=== PATIENT | female | born 1985 | race Caucasian/White ===

== ENCOUNTER → 2016-05-06 | Outpatient (CLI) | payer OTHER ==
[~2016-05-06] MED LIST: BUPR1TAB17 PO; FLINCHW9 PO; LABE20TAB PO; LABE30TA PO; NIFE30TA2 PO
[2016-05-06 12:25] LABS: BASO % 0.2 % (0.0-1.0); EOS % 0.4 % (0.0-3.0); LARGE UNSTAINED CELL # 0.1 K/mm3 (0.0-0.4); LARGE UNSTAINED CELL % 1.1 % (0.0-4.0); LYMPH # 1.1 K/mm3 (1.5-4.5); LYMPH % 9.2 % (24.0-44.0); MEAN CORPUSCULAR HGB CONC 33.8 g/dl (32.0-36.5); MEAN CORPUSCULAR VOLUME 88.6 fl (80.0-96.0); MONO # 0.5 K/mm3 (0.0-0.8); MONO % 4.3 % (0.0-5.0); NEUTROPHILS # 10.2 K/mm3 (1.8-7.7); NEUTROPHILS % 84.8 % (36.0-66.0); PLATELET COUNT, AUTOMATED 294 k/mm3 (150-450); WHITE BLOOD COUNT 12.1 K/mm3 (4.0-10.0)
== END ==
LOC: M LAB 10:42
PROVIDERS: ATTEND Specialist
DX: Z34.82 Encounter for supervision of other normal pregnancy, second trimester (principal)

== ENCOUNTER → 2016-05-20 | Outpatient (CLI) | payer OTHER ==
[2016-05-20 18:17] LABS: MEAN CORPUSCULAR HEMOGLOBIN 29.4 pg (27.0-33.0); MEAN CORPUSCULAR HGB CONC 33.8 g/dl (32.0-36.5); MEAN CORPUSCULAR VOLUME 87.1 fl (80.0-96.0); RED CELL DISTRIBUTION WIDTH 13.5 % (11.5-14.5); WHITE BLOOD COUNT 14.3 K/mm3 (4.0-10.0)
[2016-05-20 18:31] LABS: ALT/SGPT 29 U/L (12-78); AST/SGOT 15 U/L (15-37); BILIRUBIN,TOTAL 0.3 MG/DL (0.2-1.0); CREATININE FOR GFR 0.88 MG/DL (0.55-1.02); GLOMERULAR FILTRATION RATE > 60.0 (>60); URIC ACID 4.9 MG/DL (2.6-6.0)
== END ==
LOC: M SMT 14:29
PROVIDERS: ATTEND Obstetrics & Gynecology
DX: O10.013 Pre-existing essential hypertension complicating pregnancy, third trimester (principal)

== ENCOUNTER → 2016-05-22 | Outpatient (CLI) | payer OTHER ==
[~2016-05-22] MED LIST changes: +GUMMCHW PO
--- NOTE | 2016-05-22 09:20 | REP ---
Obstetric sonography: History: growth study. Findings: Scanning demonstrates a viable single intrauterine gestation in a cephalic lie. heart rate is recorded at 133 beats per minute. An anterior placenta is seen without evidence of previa. Amniotic fluid is subjectively normal. Amniotic fluid index is normal at 8.7. The umbilical cord is seen draping across the shoulders. The S/D ratio in the umbilical cord artery by Doppler is somewhat elevated at 4.57 (2.35-3.35). Diastolic flow is preserved. cranium, diaphragm, left-sided stomach, kidneys and bladder are seen today and felt to be unremarkable. Biometry chart: BPD 7.4 cm 29 weeks 6 days Head circumference 27.3 cm 29 week 6 days Abdominal 24.8 cm 29 weeks 0 days Femur length 6.1 cm 31 weeks 6 days Humeral length 5.5 cm 31 weeks 6 days HC/AC ratio normal 1.1. Cephalic index normal 0.76. Estimated weight 1513 grams, 3 pounds 5 ounces, 3rd percentile for 32 weeks 2 days. Impression: 1. Viable single intrauterine gestation at 30 weeks 0 days by today's composite criteria. Expected gestational age estimate based on prior sonography is 32 weeks 2 days. There has been less than expected interval growth. Estimated weight is in the 3rd percentile for 32 weeks 2 days. [place] by prior sonography July 15, 2016.2. S/D ratio in the umbilical cord artery by Doppler elevated at 4.57 (2.35-3.35). ELMO 8.7 (8.5-24.3). Signed by Randy Regan MD 05/22/2016 08:07 P
== END ==
LOC: M SMT 07:55
PROVIDERS: ATTEND Obstetrics & Gynecology
DX: O10.013 Pre-existing essential hypertension complicating pregnancy, third trimester (principal)

== ENCOUNTER 2016-05-24 14:01 | Inpatient (IN) | payer OTHER ==
[~2016-05-24] VITALS: Ht 162.6 cm; Wt 128.0 kg
[2016-05-24] VITALS (11 sets, daily range): BP systolic 145–175; BP diastolic 96–106
[~2016-05-24 14:01] MED LIST changes: -GUMMCHW PO
[2016-05-24] MEDS ORDERED: GUMMCHW PO (14:16)
[2016-05-24] MEDS ORDERED: LABE30TA PO (14:16)
[2016-05-24 15:38] LABS: MEAN CORPUSCULAR HEMOGLOBIN 29.9 pg (27.0-33.0); MEAN CORPUSCULAR HGB CONC 34.5 g/dl (32.0-36.5); MEAN CORPUSCULAR VOLUME 86.6 fl (80.0-96.0); RED CELL DISTRIBUTION WIDTH 12.8 % (11.5-14.5); WHITE BLOOD COUNT 11.8 K/mm3 (4.0-10.0)
[2016-05-24 15:53] LABS: ALT/SGPT 35 U/L (12-78); AST/SGOT 14 U/L (15-37); BILIRUBIN,TOTAL 0.2 MG/DL (0.2-1.0); CREATININE FOR GFR 0.95 MG/DL (0.55-1.02); GLOMERULAR FILTRATION RATE > 60.0 (>60)
[2016-05-24] MEDS ORDERED: LACTATED RINGER'S 1000 ML IV STA (16:08)
[2016-05-24] MEDS: BETAMETHASONE SOLUSPAN 6MG/ML INJ 5ML (J0702) IM SCH (16:35)
[2016-05-24] MEDS: LABETALOL 200 MG TAB PO SCH (20:34)
[2016-05-24] MEDS: buPROPion 75 MG TAB PO SCH (22:15)
[2016-05-25] VITALS (34 sets, daily range): BP systolic 119–166; BP diastolic 66–94
[2016-05-25] MEDS: buPROPion 75 MG TAB PO SCH ×2 (08:54→20:32)
[2016-05-25] MEDS: NIFEdipine 60 MG XL TAB PO SCH (08:56)
[2016-05-25] MEDS: LABETALOL 200 MG TAB PO SCH ×3 (08:57→20:32)
[2016-05-25] MEDS: BETAMETHASONE SOLUSPAN 6MG/ML INJ 5ML (J0702) IM SCH (16:16)
[2016-05-26] VITALS (17 sets, daily range): BP systolic 102–169; BP diastolic 59–89
[2016-05-26] MEDS: LABETALOL 200 MG TAB PO SCH ×3 (08:52→20:47)
[2016-05-26] MEDS: NIFEdipine 60 MG XL TAB PO SCH (08:53)
[2016-05-26] MEDS: buPROPion 75 MG TAB PO SCH ×2 (08:54→20:47)
[2016-05-27] VITALS (29 sets, daily range): BP systolic 142–198; BP diastolic 70–105
[2016-05-27] MEDS: MAG Sulf (OBGYN) 20GM/500ML 20,000 MG in APPROPRIATE DILUENT 1 EA IV SCH (00:05)
[2016-05-27] MEDS ORDERED: miSOPROStol 50 MCG 1/2 TAB (S0191) As Ordered ONE (00:39)
[2016-05-27] MEDS ORDERED: miSOPROStol 50 MCG 1/2 TAB (S0191) SL ONE ×2 (00:45→06:15)
[2016-05-27] MEDS: NIFEdipine 60 MG XL TAB PO SCH (08:18)
[2016-05-27] MEDS: LABETALOL 200 MG TAB PO SCH ×2 (08:19→14:36)
[2016-05-27] MEDS: buPROPion 75 MG TAB PO SCH (08:19)
[2016-05-27] MEDS ORDERED: miSOPROStol 50 MCG 1/2 TAB (S0191) PV ONE (11:00)
[2016-05-27] MEDS ORDERED: BUTORPHANOL 2 MG/ML INJ (J0595) IV PRN (11:00)
[2016-05-27] MEDS ORDERED: LR 1,000 ML IV SCH ×3 (11:00→21:30)
[2016-05-27] MEDS ORDERED: PROMETHAZINE INJ 25 MG/ML VIAL (J2550) IV PRN (11:00)
[2016-05-27] MEDS ORDERED: miSOPROStol 50 MCG 1/2 TAB (S0191) PO ONE (15:15)
[2016-05-27] MEDS ORDERED: BICITRA 30ML SOLN UDC PO ONE (16:30)
[2016-05-27 16:33] LABS: BASO # 0.1 K/mm3 (0.0-0.2); BASO % 0.6 % (0.0-1.0); EOS # 0.1 K/mm3 (0.0-0.50); EOS % 0.4 % (0.0-3.0); LARGE UNSTAINED CELL # 0.1 K/mm3 (0.0-0.4); LARGE UNSTAINED CELL % 0.6 % (0.0-4.0); LYMPH # 1.2 K/mm3 (1.5-4.5); LYMPH % 6.3 % (24.0-44.0); MEAN CORPUSCULAR HGB CONC 33.1 g/dl (32.0-36.5); MEAN CORPUSCULAR VOLUME 87.5 fl (80.0-96.0); MONO # 0.7 K/mm3 (0.0-0.8); MONO % 3.8 % (0.0-5.0); NEUTROPHILS # 15.2 K/mm3 (1.8-7.7); NEUTROPHILS % 88.4 % (36.0-66.0); PLATELET COUNT, AUTOMATED 278 k/mm3 (150-450); RED CELL DISTRIBUTION WIDTH 13.9 % (11.5-14.5); WHITE BLOOD COUNT 17.2 K/mm3 (4.0-10.0)
[2016-05-27] MEDS ORDERED: MORPHINE PRES-FREE INJ 10 MG/10 ML VIAL (J2274) As Ordered ONE (19:29)
[2016-05-27] MEDS ORDERED: NALBUPHINE HCL 10 MG/ML AMP (J2300) IV PRN (19:45)
[2016-05-27] MEDS ORDERED: ONDANSETRON 4MG/2ML VIAL (J2405) IV PRN ×2 (19:45→21:30)
[2016-05-27] MEDS ORDERED: NALOXONE INJ 0.4 MG/1 ML VIAL (J2310) IV PRN ×2 (19:45)
[2016-05-27] MEDS ORDERED: METOCLOPRAMIDE INJ 10MG/2ML VIAL (J2765) IV PRN ×2 (19:45→21:30)
[2016-05-27] MEDS ORDERED: OXYTOCIN INJ 10 UNITS/ML VIAL (J2590) As Ordered ONE ×2 (19:52)
[2016-05-27] MEDS ORDERED: PHENYLephrine HCL 500 MCG/5 ML (100MCG/ML) SYRINGE (J2370) As Ordered ONE (19:54)
[2016-05-27] MEDS ORDERED: ONDANSETRON 4MG/2ML VIAL (J2405) As Ordered ONE (20:00)
[2016-05-27] MEDS ORDERED: KETOROLAC 60 MG/2 ML VIAL (J1885) As Ordered ONE (20:00)
[2016-05-27] MEDS: LR 1,000 ML IV SCH ×2 (21:08)
[2016-05-27] MEDS ORDERED: RHOGAM 300 MCG (1500 IU) INJ (J2790) IM SCH (21:15)
[2016-05-27] MEDS ORDERED: CALCIUM GLUCONATE 1,000 MG in D5W MINI-BAG PLUS 100 ML IV PRN (21:15)
[2016-05-27] MEDS ORDERED: OXYTOCIN DRIP 30 UNITS in APPROPRIATE DILUENT 1 EA IV ONE (21:15)
[2016-05-27] MEDS ORDERED: MAG Sulf (L&D) 4 GM/100 ML 4 GM in APPROPRIATE DILUENT 1 EA IV ONE (21:15)
[2016-05-27] MEDS ORDERED: MEASLES,MUMPS,RUBELLA VACCINE INJ (MMR-II) (90707) SC SCH (21:15)
[2016-05-27] MEDS ORDERED: MOM 30ML SUSPENSION UDC PO PRN (21:15)
[2016-05-27] MEDS ORDERED: fentaNYL 100 MCG/2 ML INJECTION (J3010) As Ordered ONE (21:16)
[2016-05-27] MEDS ORDERED: PERCOCET PO (21:20)
[2016-05-27] MEDS ORDERED: IBUP800T23 PO (21:21)
[2016-05-27] MEDS ORDERED: fentaNYL 100 MCG/2 ML INJECTION (J3010) IV PRN (21:30)
[2016-05-27] MEDS ORDERED: PERCOCET 5MG/325MG TAB PO PRN (21:30)
--- NOTE | 2016-05-27 21:59 | RO ---
DATE OF PROCEDURE: 05/27/2016 PREOPERATIVE DIAGNOSES: 1. Failed induction. 2. Chronic hypertension with superimposed preeclampsia. 3. Severe intrauterine growth restriction (IUGR). POSTOPERATIVE DIAGNOSES: 1. Failed induction. 2. Chronic hypertension with superimposed preeclampsia. 3. Severe intrauterine growth restriction (IUGR). PROCEDURE: Primary lower transverse section. SURGEON: Angelica Blackmon MD ASSISTANTS: DANIEL Craven R2 ANESTHESIA: Spinal. ESTIMATED BLOOD LOSS: 500 mL. INTRAVENOUS FLUIDS: 1400 mL of lactated Ringer's solution. URINE OUTPUT: 50 mL. PREOPERATIVE ANTIBIOTICS: 2 grams of Ancef. SPECIMENS: Cord blood, placenta. OPERATIVE FINDINGS: Female infant, scores 4 and 9. Weight was 3 pounds 5 ounces or 1498 grams. DESCRIPTION OF PROCEDURE: After informed consent was obtained and written consent was reviewed, the patient was brought to the operating room where spinal anesthesia was then placed. She was then placed in the supine position with a left lateral tilt. A Beyer catheter was placed and set to gravity. She was then prepped and draped in a normal sterile fashion. A time-out in the operating room was then performed, identifying the patient, procedure to be performed, as well as drug allergies. Anesthesia was then tested and deemed to be adequate. A Pfannenstiel skin incision was then made and carried down to the underlying rectus fascia. The fascia was scored and this incision was extended bilaterally. The fascia was then dissected off the underlying rectus muscles both superiorly and inferiorly. The rectus muscles were in the midline. The peritoneum was then entered. The vesicouterine peritoneum was then identified, was tented and excised to create a bladder flap. Bladder blade was then placed to retract back the bladder. Curvilinear incision was made in the lower uterine segment. Amniotomy was then performed productive of clear fluid. head was brought to the level of the incision, followed by delivery of shoulders and corpus. Cord was clamped times two and was cut. The was taken over to the warmer where Dr. Ace, Horizontal Drill Operator, awaited. Cord blood was obtained. The placenta was then drained and delivered grossly intact. The uterus was then exteriorized and cleared of all clots and debris. The uterine incision was then closed in two layers using #0 Vicryl first layer in a running locking fashion, followed by a second layer for imbrication in a running nonlocking fashion. The abdomen was then suctioned. Surgical sites were inspected and noted to be hemostatic. The uterus was returned and the patient's abdomen once again inspected and noted to be hemostatic. The anterior peritoneum was then reapproximated with #3-0 Vicryl, the rectus muscles were reapproximated with #3-0 Vicryl. The fascia was then closed with #0 Vicryl in a running nonlocking fashion. The subcutaneous tissue was then irrigated and suctioned. Roxy's fascia was reapproximated with #3-0 Vicryl. Several subdermal stitches were placed of #3-0 Vicryl and the skin was closed with #4-0 Monocryl in a subcuticular fashion. The incision was then cleaned and dry. Mastisol was applied above and below the incision. Steri-Strips were then applied over the incision. The incision was then dressed. The patient was then taken to recovery in stable condition. Counts were correct.
[2016-05-28] VITALS (22 sets, daily range): BP systolic 121–184; BP diastolic 68–96
[2016-05-28] MEDS: LABETALOL 200 MG TAB PO SCH ×4 (01:15→21:47)
[2016-05-28] MEDS: KETOROLAC 30 MG/ML VIAL (J1885) IV SCH ×4 (02:28→20:34)
[2016-05-28] MEDS: LR 1,000 ML IV SCH ×6 (05:08→21:08)
[2016-05-28 07:21] LABS: MEAN CORPUSCULAR HEMOGLOBIN 29.5 pg (27.0-33.0); MEAN CORPUSCULAR HGB CONC 33.9 g/dl (32.0-36.5); MEAN CORPUSCULAR VOLUME 86.9 fl (80.0-96.0); RED CELL DISTRIBUTION WIDTH 12.7 % (11.5-14.5); WHITE BLOOD COUNT 15.5 K/mm3 (4.0-10.0)
[2016-05-28] MEDS: buPROPion 75 MG TAB PO SCH ×2 (07:55→20:34)
[2016-05-28] MEDS: PRENATAL VITAMIN TAB PO SCH (08:50)
[2016-05-28] MEDS: DOCUSATE SODIUM 100 MG CAP PO SCH ×2 (08:50→20:34)
[2016-05-28] MEDS: NIFEdipine 60 MG XL TAB PO SCH (09:26)
[2016-05-28] MEDS: MAG Sulf (OBGYN) 20GM/500ML 20,000 MG in APPROPRIATE DILUENT 1 EA IV SCH ×2 (10:08→19:45)
[2016-05-28] MEDS ORDERED: MAGNESIUM SULFATE 4% INJ 20GM/500ML (40MG/ML) (J3475) As Ordered ONE (19:36)
[2016-05-29] VITALS (9 sets, daily range): BP systolic 114–167; BP diastolic 73–97
[2016-05-29] MEDS: IBUPROFEN 800 MG TAB PO SCH ×3 (04:13→19:48)
[2016-05-29] MEDS: LABETALOL 200 MG TAB PO SCH ×3 (06:07→21:25)
[2016-05-29] MEDS: PERCOCET 5MG/325MG TAB PO PRN ×5 (06:08→22:16)
[2016-05-29] MEDS: DOCUSATE SODIUM 100 MG CAP PO SCH ×2 (08:29→21:26)
[2016-05-29] MEDS: buPROPion 75 MG TAB PO SCH ×2 (08:29→21:26)
[2016-05-29] MEDS: PRENATAL VITAMIN TAB PO SCH (08:29)
[2016-05-29] MEDS: NIFEdipine 60 MG XL TAB PO SCH (08:30)
[2016-05-30 02:05] VITALS: BP 158/82
[2016-05-30] MEDS: PERCOCET 5MG/325MG TAB PO PRN ×3 (02:05→10:30)
[2016-05-30] MEDS: IBUPROFEN 800 MG TAB PO SCH ×2 (03:51→12:12)
[2016-05-30 06:15] VITALS: BP_SYST 164; BP_SYST 179; BP_DIAS 88; BP_DIAS 89
[2016-05-30] MEDS: LABETALOL 200 MG TAB PO SCH (06:18)
[2016-05-30 07:01] VITALS: BP 148/84
[2016-05-30] MEDS ORDERED: PROC30TA PO (08:38)
[2016-05-30] MEDS ORDERED: OXYC1TAB23 PO (08:38)
[2016-05-30] MEDS ORDERED: BUPR15TA PO (08:38)
[2016-05-30] MEDS: DOCUSATE SODIUM 100 MG CAP PO SCH (09:47)
[2016-05-30] MEDS: PRENATAL VITAMIN TAB PO SCH (09:47)
[2016-05-30 09:49] VITALS: BP 155/90
[2016-05-30] MEDS: NIFEdipine 60 MG XL TAB PO SCH (09:49)
[2016-05-30] MEDS: buPROPion 75 MG TAB PO SCH (09:50)
[2016-05-30 10:00] VITALS: BP 155/90
== END 2016-05-30 12:25 | disposition home or self-care (01) | DRG 540 ==
LOC: M LDO 14:01 → M LDI 16:10 → M OBS 05-26 05:07 → M LDI 05-26 23:25 → M OBS 05-27 22:30
PROVIDERS: ADMIT Obstetrics & Gynecology; ATTEND Obstetrics & Gynecology
PROC: 10D00Z1 Extraction of Products of Conception, Low, Open Approach (ICD-10-PCS; principal; 2016-05-27 19:35)
DX: O11.4 Pre-existing hypertension with pre-eclampsia, complicating childbirth (principal); O61.0 Failed medical induction of labor; Z37.0 Single live birth; Z3A.32 32 weeks gestation of pregnancy

== ENCOUNTER 2016-08-13 07:55 | Emergency (ER) | payer OTHER ==
[~2016-08-13] VITALS: Ht 162.6 cm; Wt 122.0 kg
[~2016-08-13 07:55] MED LIST changes: +BUPR15TA PO; +GUMMCHW PO; +IBUP800T23 PO; +OXYC1TAB23 PO; +PERCOCET PO; +PROC30TA PO
[2016-08-13] MEDS ORDERED: PRIL20CA9 PO (08:14)
[2016-08-13] MEDS ORDERED: NS 500 ML IV ONE (08:45)
[2016-08-13] MEDS ORDERED: ONDANSETRON 4MG/2ML VIAL (J2405) IV ONE ×2 (08:45→11:30)
[2016-08-13] MEDS ORDERED: MORPHINE 4 MG/ML 1ML SYRINGE IV ONE (08:45)
[2016-08-13 09:03] LABS: BASO % 0.3 % (0.0-1.0); EOS # 0.1 K/mm3 (0.0-0.50); EOS % 0.8 % (0.0-3.0); LARGE UNSTAINED CELL # 0.1 K/mm3 (0.0-0.4); LARGE UNSTAINED CELL % 0.7 % (0.0-4.0); LYMPH # 0.7 K/mm3 (1.5-4.5); LYMPH % 9.1 % (24.0-44.0); MEAN CORPUSCULAR HEMOGLOBIN 27.7 pg (27.0-33.0); MEAN CORPUSCULAR HGB CONC 32.3 g/dl (32.0-36.5); MEAN CORPUSCULAR VOLUME 85.8 fl (80.0-96.0); MONO # 0.4 K/mm3 (0.0-0.8); MONO % 5.8 % (0.0-5.0); NEUTROPHILS # 6.1 K/mm3 (1.8-7.7); NEUTROPHILS % 83.4 % (36.0-66.0); PLATELET COUNT, AUTOMATED 310 k/mm3 (150-450); RED CELL DISTRIBUTION WIDTH 13.1 % (11.5-14.5); WHITE BLOOD COUNT 7.3 K/mm3 (4.0-10.0)
[2016-08-13 09:18] LABS: ALBUMIN 3.9 GM/DL (3.2-5.2); ALBUMIN/GLOBULIN RATIO 1.15 (1.00-1.93); BILIRUBIN,DIRECT 1.1 MG/DL (0.0-0.2); BILIRUBIN,TOTAL 1.5 MG/DL (0.2-1.0); CALCIUM LEVEL 9.2 MG/DL (8.5-10.1); CREATININE FOR GFR 1.16 MG/DL (0.55-1.02); GLOMERULAR FILTRATION RATE 58.4 (>60); POTASSIUM SERUM 4.1 MEQ/L (3.5-5.1); TOTAL PROTEIN 7.3 GM/DL (6.4-8.2)
--- NOTE | 2016-08-13 09:53 | REP ---
RIGHT UPPER QUADRANT SONOGRAPHY: HISTORY: Right upper quadrant pain. FINDINGS: Scanning through right upper quadrant of the abdomen demonstrates a somewhat dilated, 12.8 cm long gallbladder containing stones and sludge. Common bile duct is normal measuring 0.6 cm. Gallbladder wall is not felt to be thickened, 2 mm. No focal hepatic lesion is seen. Pancreatic tail is obscured by abdominal gas. No pancreatic abnormality is seen. There is no evidence of ascites or right renal abnormality. The right kidney measures 11.3 x 5.2 x 4.1 cm. IMPRESSION: Dilated gallbladder containing sludge and small calculi. No wall thickening or pericholecystic fluid seen. Normal CBD. Signed by Randy Regan MD 08/13/2016 10:14 A
[2016-08-13] MEDS ORDERED: hydrALAZINE INJ 20 MG/ML VIAL IV ONE (14:15)
[2016-08-13 15:02] VITALS: BP 183/86
[2016-08-13 16:43] VITALS: BP 171/84
--- NOTE | 2016-08-13 16:45 | ECGEPIP ---
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
[2016-08-14] MEDS ORDERED: IBUP800T23 PO (06:34)
[2016-08-14] MEDS ORDERED: BUPR200T PO (06:34)
[2016-08-16] MEDS ORDERED: NORCOTAB PO (15:26)
== END 2016-08-13 16:44 | disposition home or self-care (01) ==
LOC: M ED 09:11
DX: K80.20 Calculus of gallbladder without cholecystitis without obstruction (principal); R10.11 Right upper quadrant pain; R94.5 Abnormal results of liver function studies; I10 Essential (primary) hypertension; F41.9 Anxiety disorder, unspecified; F32.9 Major depressive disorder, single episode, unspecified; Z88.0 Allergy status to penicillin; Z88.1 Allergy status to other antibiotic agents; Z88.8 Allergy status to other drugs, medicaments and biological substances; Z91.040 Latex allergy status; Z79.899 Other long term (current) drug therapy
CPT/HCPCS: 36415; 76705; 80048; 80076; 83605; 83690; 85025; 93005; 93041; 96361; 96374; 96375; 96376; 99285; J2405

== ENCOUNTER → 2016-11-19 | Outpatient (CLI) | payer OTHER ==
[~2016-11-19] MED LIST changes: -BUPR1TAB17 PO; +BUPR1TAB53 PO; +BUPR200T PO; +IBUP1TAB7 PO; -IBUP800T23 PO; +NORCOTAB PO; +PRIL20CA9 PO
--- NOTE | 2016-11-19 14:08 | REP ---
KUB, ONE VIEW: HISTORY: Foreign body. A small amount of air is present in small and large intestine. There are no air fluid levels or dilated loops of intestine. There is no pneumoperitoneum. Surgical clips are present in the right upper quadrant. There is no radiopaque foreign body. IMPRESSION: Nonspecific bowel gas pattern. Signed by Marco Antunez MD 11/19/2016 02:13 P
== END ==
LOC: M RAD 12:56
PROVIDERS: ATTEND Internal Medicine Gastroenterology
DX: T18.3XXA Foreign body in small intestine, initial encounter (principal); W18.30XA Fall on same level, unspecified, initial encounter; Y92.009 Unspecified place in unspecified non-institutional (private) residence as the place of occurrence of the external cause

== ENCOUNTER → 2017-04-12 | Outpatient (CLI) | payer OTHER ==
[2017-04-12 18:20] LABS: BASO % 0.4 % (0.0-1.0); EOS # 0.1 10^3/uL (0.0-0.50); EOS % 1.7 % (0.0-3.0); IMMATURE GRANULOCYTE % 0.1 % (0-0); LYMPH # 1.6 10^3/uL (1.5-4.5); LYMPH % 23.7 % (24.0-44.0); MEAN CORPUSCULAR HEMOGLOBIN 27.1 pg (27.0-33.0); MEAN CORPUSCULAR HGB CONC 32.8 g/dl (32.0-36.5); MEAN CORPUSCULAR VOLUME 82.5 fl (80.0-96.0); MONO # 0.8 10^3/uL (0.0-0.8); MONO % 11.2 % (0.0-5.0); NEUTROPHILS # 4.3 10^3/uL (1.8-7.7); NEUTROPHILS % 62.9 % (36.0-66.0); PLATELET COUNT, AUTOMATED 402 10^3/uL (150-450); WHITE BLOOD COUNT 6.9 10^3/uL (4.0-10.0)
[2017-04-12 18:36] LABS: ALBUMIN 3.9 GM/DL (3.2-5.2); ALBUMIN/GLOBULIN RATIO 1.08 (1.00-1.93); BILIRUBIN,TOTAL 0.4 MG/DL (0.2-1.0); CALCIUM LEVEL 8.7 MG/DL (8.5-10.1); CREATININE FOR GFR 1.2 MG/DL (0.55-1.02); GLOMERULAR FILTRATION RATE 55.8 (>60); POTASSIUM SERUM 3.4 MEQ/L (3.5-5.1); TOTAL PROTEIN 7.5 GM/DL (6.4-8.2)
== END ==
LOC: M WUC 15:13
PROVIDERS: ATTEND Registered Nurse Psychiatric/Mental Health
DX: F41.1 Generalized anxiety disorder (principal)

== ENCOUNTER → 2020-06-30 | Outpatient (CLI) | payer OTHER ==
[~2020-06-30] MED LIST changes: -BUPR200T PO; +BUPR200T2 PO; +HYDR-3715 PO; +LABE300T2 PO; -LABE30TA PO; -NORCOTAB PO
[2020-06-30 16:33] LABS: BASO % 0.4 % (0.0-1.0); EOS # 0.1 10^3/uL (0.0-0.5); EOS % 0.9 % (0.0-3.0); HEMOGLOBIN 10.3 g/dl (12.0-15.5); LYMPH # 0.9 10^3/uL (1.5-5.0); LYMPH % 10.8 % (24.0-44.0); MEAN CORPUSCULAR HEMOGLOBIN 22.6 pg (27.0-33.0); MEAN CORPUSCULAR HGB CONC 28.6 g/dl (32.0-36.5); MEAN CORPUSCULAR VOLUME 78.9 fl (80.0-96.0); MONO # 0.8 10^3/uL (0.0-0.8); MONO % 9.9 % (2.0-8.0); NEUTROPHILS # 6.2 10^3/uL (1.5-8.5); NEUTROPHILS % 77.5 % (36.0-66.0); PLATELET COUNT, AUTOMATED 354 10^3/uL (150-450); RED BLOOD COUNT 4.56 10^6/uL (4.00-5.40)
[2020-06-30 16:47] LABS: HEMOGLOBIN A1c 5.5 %
[2020-06-30 17:03] LABS: ALBUMIN 3.2 GM/DL (3.2-5.2); BILIRUBIN,DIRECT 0.6 MG/DL (0.0-0.2); BILIRUBIN,TOTAL 1.5 MG/DL (0.2-1.0); CALCIUM LEVEL 9.4 MG/DL (8.5-10.1); CHOLESTEROL RISK RATIO 2.541 (<5); CREATININE FOR GFR 1.31 MG/DL (0.55-1.30); GLOMERULAR FILTRATION RATE 49.5 (>60); PHOSPHORUS LEVEL 3.5 MG/DL (2.5-4.9); POTASSIUM SERUM 3.3 MEQ/L (3.5-5.1); THYROID STIMULATING HORMONE 3.27 uIU/ML (0.358-3.740); TOTAL PROTEIN 6.9 GM/DL (6.4-8.2)
== END ==
LOC: M WUC 13:19
PROVIDERS: ATTEND Registered Nurse
DX: F41.1 Generalized anxiety disorder (principal); Z51.81 Encounter for therapeutic drug level monitoring; Z13.9 Encounter for screening, unspecified; E55.9 Vitamin D deficiency, unspecified

== ENCOUNTER → 2020-09-07 | Outpatient (REF) | payer OTHER ==
[2020-09-07 13:44] LABS: CHOLESTEROL RISK RATIO 2.23 (<5)
== END ==
LOC: M SFHCPLAZ 09:54
PROVIDERS: ATTEND Physician Assistant Medical
DX: Z13.220 Encounter for screening for lipoid disorders (principal)

== ENCOUNTER 2020-09-28 10:30 | Outpatient (RCR) | payer OTHER | END 2020-10-02 | LOC: M PT 10:30 | PROVIDERS: ATTEND Physician Assistant Medical | DX: I89.0 Lymphedema, not elsewhere classified (principal); I87.2 Venous insufficiency (chronic) (peripheral) ==

== ENCOUNTER 2020-10-31 10:00 | Outpatient (RCR) | payer OTHER | END 2020-11-01 | LOC: M PT 10:00 | PROVIDERS: ATTEND Physician Assistant Medical | DX: I89.0 Lymphedema, not elsewhere classified (principal); I87.2 Venous insufficiency (chronic) (peripheral) ==

== ENCOUNTER 2020-12-01 13:30 | Outpatient (RCR) | payer OTHER | END 2020-12-02 | LOC: M PT 13:30 | PROVIDERS: ATTEND Physician Assistant Medical | DX: I89.0 Lymphedema, not elsewhere classified (principal); I87.2 Venous insufficiency (chronic) (peripheral) ==

== ENCOUNTER 2020-12-29 15:00 | Outpatient (RCR) | payer OTHER | END 2021-01-02 | LOC: M PT 15:00 | PROVIDERS: ATTEND Physician Assistant Medical | DX: I89.0 Lymphedema, not elsewhere classified (principal); I87.2 Venous insufficiency (chronic) (peripheral) ==

== ENCOUNTER 2021-01-31 10:45 | Outpatient (RCR) | payer OTHER | END 2021-02-01 | LOC: M PT 10:45 | PROVIDERS: ATTEND Physician Assistant Medical | DX: I89.0 Lymphedema, not elsewhere classified (principal); I87.2 Venous insufficiency (chronic) (peripheral) ==

== ENCOUNTER 2021-03-02 10:45 | Outpatient (RCR) | payer OTHER | END 2021-03-04 | LOC: M PT 10:45 | PROVIDERS: ATTEND Physician Assistant Medical | DX: I89.0 Lymphedema, not elsewhere classified (principal); I87.2 Venous insufficiency (chronic) (peripheral) ==

== ENCOUNTER 2021-04-02 12:00 | Outpatient (RCR) | payer OTHER | END 2021-04-03 | LOC: M PT 12:00 | PROVIDERS: ATTEND Physician Assistant Medical | DX: I89.0 Lymphedema, not elsewhere classified (principal) ==

== ENCOUNTER 2021-05-02 10:45 | Outpatient (RCR) | payer OTHER | END 2021-05-04 | LOC: M PT 10:45 | PROVIDERS: ATTEND Physician Assistant Medical | DX: I89.0 Lymphedema, not elsewhere classified (principal); I87.2 Venous insufficiency (chronic) (peripheral) ==

== ENCOUNTER → 2021-05-21 | Outpatient (CLI) | payer OTHER ==
[2021-05-21 11:26] LABS: BASO % 0.4 % (0.0-1.0); EOS # 0.2 10^3/uL (0.0-0.5); EOS % 2.5 % (0.0-3.0); HEMATOCRIT 37.2 % (36.0-47.0); HEMOGLOBIN 10.5 g/dl (12.0-15.5); LYMPH # 0.8 10^3/uL (1.5-5.0); LYMPH % 9.9 % (24.0-44.0); MEAN CORPUSCULAR HEMOGLOBIN 20.8 pg (27.0-33.0); MEAN CORPUSCULAR HGB CONC 28.2 g/dl (32.0-36.5); MEAN CORPUSCULAR VOLUME 73.7 fl (80.0-96.0); MONO # 0.7 10^3/uL (0.0-0.8); MONO % 8.9 % (2.0-8.0); NEUTROPHILS # 6.2 10^3/uL (1.5-8.5); PLATELET COUNT, AUTOMATED 327 10^3/uL (150-450); RED BLOOD COUNT 5.05 10^6/uL (4.00-5.40); WHITE BLOOD COUNT 7.9 10^3/uL (4.0-10.0)
[2021-05-21 11:57] LABS: ALBUMIN 2.3 GM/DL (3.2-5.2); BILIRUBIN,DIRECT 0.7 MG/DL (0.0-0.2); CALCIUM LEVEL 8.7 MG/DL (8.5-10.1); CHOLESTEROL RISK RATIO 2.772 (<5); CREATININE FOR GFR 1.13 MG/DL (0.55-1.30); FREE T3 1.9 PG/ML (2.2-4.0); FREE T4 1.13 NG/DL (0.76-1.46); GLOMERULAR FILTRATION RATE 58.3 (>60); PHOSPHORUS LEVEL 3.7 MG/DL (2.5-4.9); POTASSIUM SERUM 3.6 MEQ/L (3.5-5.1); THYROID STIMULATING HORMONE 3.83 uIU/ML (0.358-3.740); TOTAL 25(OH) VITAMIN D 29.1 NG/ML (30.0-100.0); TOTAL PROTEIN 7.4 GM/DL (6.4-8.2)
[2021-05-21 12:08] LABS: HEMOGLOBIN A1c 5.3 %
== END ==
LOC: M LAB 11:02
PROVIDERS: ATTEND Nurse Practitioner Psychiatric/Mental Health
DX: F41.1 Generalized anxiety disorder (principal)

== ENCOUNTER → 2021-06-04 | Outpatient (RCR) | payer OTHER | LOC: M PT 05-07 12:10 | PROVIDERS: ATTEND Physician Assistant Medical | DX: I89.0 Lymphedema, not elsewhere classified (principal) ==

== ENCOUNTER 2021-06-07 16:54 | Inpatient (IN) | payer OTHER ==
[~2021-06-07] VITALS: Ht 162.6 cm; Wt 112.9 kg
[2021-06-07 17:44] LABS: ABG BASE EXCESS -7.4 (-2.0-2.0); ABG HCO3 17.1 MEQ/L (22.0-26.0); ABG O2 SATURATION 96.4 % (95.0-99.0); ABG PARTIAL PRESSURE CO2 32.3 mmHg (35.0-45.0); ABG PARTIAL PRESSURE O2 90.6 mmHg (75.0-100.0); ABG STANDARD HCO3 18.5 MEQ/L (22.0-26.0); ABG TOTAL CO2 18.1 MEQ/L (22.0-29.0); ABG pH (ARTERIAL) 7.342 UNITS (7.350-7.450)
[2021-06-07 17:49] LABS: HEMOGLOBIN 14.9 g/dl (12.0-15.5); MEAN CORPUSCULAR HEMOGLOBIN 20.8 pg (27.0-33.0); MEAN CORPUSCULAR VOLUME 72.2 fl (80.0-96.0); PLATELET COUNT, AUTOMATED 262 10^3/uL (150-450); WHITE BLOOD COUNT 12.6 10^3/uL (4.0-10.0)
[2021-06-07] MEDS ORDERED: DEXTROSE 50% 50 ML SYRINGE As Ordered ONE (18:07)
[2021-06-07] MEDS ORDERED: DEXTROSE 50% 50 ML SYRINGE IV STA ×4 (18:08→22:52)
[2021-06-07] MEDS ORDERED: D10W/0.45% SODIUM CHLORIDE 1,000 ML IV SCH (18:10)
[2021-06-07 18:13] LABS: HEMATOCRIT 51.7 % (36.0-47.0); RED BLOOD COUNT 7.16 10^6/uL (4.00-5.40)
[2021-06-07 18:14] LABS: MEAN CORPUSCULAR HGB CONC 28.8 g/dl (32.0-36.5)
[2021-06-07 18:26] LABS: HCG, SERUM QUALITATIVE NEGATIVE (NEGATIVE); METAMYELOCYTES 4 % (0-0); MONOCYTES 1 % (0-5); NEUTROPHILS 71 % (28-66); TOXIC VACUOLATION 2+
[2021-06-07 18:28] LABS: ANISOCYTOSIS 2+; HYPOCHROMASIA 2+; MICROCYTOSIS 1+; POLYCHROMASIA 1+
[2021-06-07 18:29] LABS: CRENATED RBC 2+; PLATELET ESTIMATE NORMAL (NORMAL)
[2021-06-07 18:36] LABS: CK-MB VALUE MASS 182.4 NG/ML (<3.6); MB/CK RELATIVE INDEX 15.66 (< OR =4)
[2021-06-07] MEDS ORDERED: CEFEPIME HCL 2 GM in D5W MINI-BAG PLUS 50 ML IV ONE (18:40)
[2021-06-07 18:41] LABS: ACETAMINOPHEN LEVEL < 2.0 UG/ML (10.0-30.0); ALBUMIN 1.6 GM/DL (3.2-5.2); ALT/SGPT 80 U/L (12-78); BILIRUBIN,DIRECT 2.3 MG/DL (0.0-0.2); BILIRUBIN,TOTAL 2.9 MG/DL (0.2-1.0); BLOOD UREA NITROGEN 50 MG/DL (7-18); CALCIUM LEVEL 7.9 MG/DL (8.5-10.1); CARBON DIOXIDE LEVEL 20 MEQ/L (21-32); CHLORIDE LEVEL 106 MEQ/L (98-107); ETHYL ALCOHOL (ETHANOL) < 0.003 % (0.000-0.010); GLOMERULAR FILTRATION RATE 18.2 (>60); GLUCOSE, FASTING 87 MG/DL (70-100); LIPASE < 10 U/L (73-393); POTASSIUM SERUM 4.4 MEQ/L (3.5-5.1); SALICYLATE LEVEL < 1.7 MG/DL (5.0-30.0); SODIUM LEVEL 138 MEQ/L (136-145); TOTAL PROTEIN 5.4 GM/DL (6.4-8.2)
[2021-06-07] MEDS ORDERED: BUSP1TAB PO (20:56)
[2021-06-07] MEDS ORDERED: CLON-412 PO (20:56)
[2021-06-07] MEDS ORDERED: VITMTA PO (20:56)
[2021-06-07] MEDS ORDERED: TRAZ-252 PO (20:56)
[2021-06-07] MEDS ORDERED: VENTAER INH (20:56)
[2021-06-07] MEDS ORDERED: SERT-141 PO (20:56)
[2021-06-07 20:58] LABS: CK-MB VALUE MASS 184.5 NG/ML (<3.6); MB/CK RELATIVE INDEX 12.07 (< OR =4)
[2021-06-07] MEDS: dexameTHASONE 4 MG/ML 1ML VIAL (J1100 PER 1MG) IV SCH (21:00)
[2021-06-07] MEDS ORDERED: HOME MED LIST COMPLETE! XX SCH (21:00)
[2021-06-07] MEDS ORDERED: MORPHINE 2 MG/ML 1ML VIAL (J2270) IV ONE (22:15)
[2021-06-07] MEDS ORDERED: NS 500 ML IV ONE (22:15)
[2021-06-07] MEDS ORDERED: ASPIRIN 325 MG TAB PO ONE (22:15)
[2021-06-07] MEDS ORDERED: MAALOX 30 ML SUSP *UDC PO PRN (22:45)
[2021-06-07] MEDS ORDERED: ACETAMINOPHEN TAB 650MG DOSE (2X325MG) PO PRN (22:45)
[2021-06-07] MEDS ORDERED: MOM 30ML SUSPENSION UDC PO PRN (22:45)
[2021-06-07] MEDS ORDERED: D5W/0.45% SODIUM CHLORIDE 1,000 ML IV SCH (22:45)
[2021-06-07] MEDS ORDERED: VANCOMYCIN HCL 1,000 MG, VIAL MATE ADAPTER 1 EACH in NS 250 ML IV ONE (23:30)
[2021-06-07] MEDS: D10W/0.45% SODIUM CHLORIDE 1,000 ML IV SCH (23:40)
[2021-06-08] VITALS (66 sets, daily range): BP systolic 79–162; BP diastolic 46–87; O2SAT 100
[2021-06-08] MEDS ORDERED: HALOPERIDOL 5MG/ML VIAL (J1630 PER 1) IM STA (00:06)
[2021-06-08] MEDS ORDERED: HEPARIN SOD (PORCINE) 5000UNITS/ML 1ML VIAL/SYRINGE IV ONE (00:40)
[2021-06-08] MEDS ORDERED: HEPARIN DRIP 25,000 UNITS in IV 1 EA IV SCH (00:40)
[2021-06-08] MEDS ORDERED: HEPARIN SOD (PORCINE) 5000UNITS/ML 1ML VIAL/SYRINGE IV PRN (00:45)
[2021-06-08] MEDS ORDERED: DEXTROSE 50% 50 ML SYRINGE IV STA ×3 (00:47→06:17)
[2021-06-08] MEDS ORDERED: FUROSEMIDE 40MG/4ML VIAL (J1940) IV ONE ×2 (01:25→04:50)
[2021-06-08 01:37] LABS: ABG BASE EXCESS -11.6 (-2.0-2.0); ABG HCO3 16.4 MEQ/L (22.0-26.0); ABG O2 SATURATION 99.2 % (95.0-99.0); ABG PARTIAL PRESSURE O2 180.9 mmHg (75.0-100.0); ABG STANDARD HCO3 15.5 MEQ/L (22.0-26.0); ABG TOTAL CO2 17.8 MEQ/L (22.0-29.0)
[2021-06-08] MEDS ORDERED: LORazepam 2 MG/ML VIAL IV STA (01:56)
[2021-06-08] MEDS ORDERED: SODIUM BICARBONATE 8.4% INJ 50 ML SYRINGE IV STA (01:59)
[2021-06-08] MEDS ORDERED: REMDESIVIR 200 MG in NS 250 ML IV ONE (02:00)
[2021-06-08 02:12] LABS: INR 2.17; PROTHROMBIN TIME 24.6 SECONDS (12.7-14.5)
[2021-06-08 02:13] LABS: FIBRINOGEN 661 MG/DL (268-480); PARTIAL THROMBOPLASTIN TIME 42.4 SECONDS (25.9-37.0)
[2021-06-08 02:34] LABS: D-DIMER QUANT > 4000.00 ng/ml (<500)
[2021-06-08] MEDS: D10W/0.45% SODIUM CHLORIDE 1,000 ML IV SCH ×2 (02:47→12:25)
[2021-06-08 02:49] LABS: FERRITIN 277 NG/ML (8-252); LDH LACTATE DEHYDROGENASE 812 U/L (84-246); NT-PRO BNP > 175000 PG/ML (<125)
[2021-06-08] MEDS ORDERED: SODIUM CHLORIDE 0.9% INJ 10 ML SYR IV ONE (04:00)
[2021-06-08 05:01] LABS: HEMATOCRIT 43.8 % (36.0-47.0); MEAN CORPUSCULAR HEMOGLOBIN 20.5 pg (27.0-33.0); MEAN CORPUSCULAR HGB CONC 27.6 g/dl (32.0-36.5); MEAN CORPUSCULAR VOLUME 74.1 fl (80.0-96.0); RED BLOOD COUNT 5.91 10^6/uL (4.00-5.40); WHITE BLOOD COUNT 17.1 10^3/uL (4.0-10.0)
[2021-06-08 05:18] LABS: HEMOGLOBIN 12.1 g/dl (12.0-15.5); PLATELET COUNT, AUTOMATED 111 10^3/uL (150-450)
[2021-06-08 05:26] LABS: ALBUMIN 1.2 GM/DL (3.2-5.2); BILIRUBIN,TOTAL 3.3 MG/DL (0.2-1.0); CALCIUM LEVEL 7.2 MG/DL (8.5-10.1); CREATININE FOR GFR 3.42 MG/DL (0.55-1.30); GLOMERULAR FILTRATION RATE 16.3 (>60); POTASSIUM SERUM 5.9 MEQ/L (3.5-5.1); TOTAL PROTEIN 5.1 GM/DL (6.4-8.2)
[2021-06-08 05:43] LABS: ANISOCYTOSIS 2+; ATYPICAL LYMPH 2 % (0-5); CRENATED RBC 2+; LYMPHOCYTES 1 % (16-44); METAMYELOCYTES 2 % (0-0); MONOCYTES 13 % (0-5); NEUTROPHILS 67 % (28-66); PLATELET ESTIMATE DECREASED (NORMAL); POIKILOCYTOSIS 2+; POLYCHROMASIA 1+
[2021-06-08 05:44] LABS: TOXIC GRANULATION 1+; TOXIC VACUOLATION 2+
[2021-06-08] MEDS ORDERED: CALCIUM GLUCONATE 1,000 MG in D5W MINI-BAG PLUS 100 ML IV ONE (06:30)
[2021-06-08] MEDS: PANTOPRAZOLE 40MG VIAL (C9113 PER 1) IV SCH (08:32)
[2021-06-08 08:56] LABS: CREATININE FOR GFR 3.44 MG/DL (0.55-1.30); GLOMERULAR FILTRATION RATE 16.1 (>60); POTASSIUM SERUM 4.2 MEQ/L (3.5-5.1)
[2021-06-08 08:57] LABS: CK-MB VALUE MASS 65.2 NG/ML (<3.6); MB/CK RELATIVE INDEX 15.45 (< OR =4)
[2021-06-08 09:05] LABS: ABG BASE EXCESS -9.9 (-2.0-2.0); ABG HCO3 18.5 MEQ/L (22.0-26.0); ABG O2 SATURATION 83.4 % (95.0-99.0); ABG PARTIAL PRESSURE CO2 51.9 mmHg (35.0-45.0); ABG PARTIAL PRESSURE O2 57.7 mmHg (75.0-100.0); ABG STANDARD HCO3 16.3 MEQ/L (22.0-26.0); ABG TOTAL CO2 20.1 MEQ/L (22.0-29.0)
[2021-06-08 09:14] LABS: ABG pH (ARTERIAL) 7.171 UNITS (7.350-7.450)
[2021-06-08] MEDS ORDERED: SUCCINYLCHOLINE INJ 200 MG/10 ML VIAL (J0330) As Ordered ONE (09:16)
[2021-06-08] MEDS ORDERED: fentaNYL 100 MCG/2 ML INJECTION As Ordered ONE (09:17)
[2021-06-08] MEDS ORDERED: MIDAZOLAM INJ 2MG/2ML VIAL (J2250 PER 1MG) As Ordered ONE ×2 (09:17→09:18)
[2021-06-08 09:19] LABS: VANCOMYCIN RANDOM < 0.8 UG/ML
[2021-06-08] MEDS ORDERED: VANCOMYCIN HCL 750 MG, VIAL MATE ADAPTER 1 EACH in NS 250 ML IV ONE ×2 (10:00→11:00)
[2021-06-08] MEDS: CEFEPIME HCL 1 GM in D5W MINI-BAG PLUS 50 ML IV SCH ×2 (10:03→21:08)
[2021-06-08] MEDS ORDERED: GLUCOSE 4GM CHEW TABLET PO PRN (10:20)
[2021-06-08] MEDS ORDERED: GLUCAGON INJ 1MG VIAL SC PRN (10:20)
[2021-06-08 10:49] LABS: ABG BASE EXCESS -8.6 (-2.0-2.0); ABG HCO3 17.3 MEQ/L (22.0-26.0); ABG O2 SATURATION 99.1 % (95.0-99.0); ABG PARTIAL PRESSURE CO2 37.1 mmHg (35.0-45.0); ABG PARTIAL PRESSURE O2 147.7 mmHg (75.0-100.0); ABG STANDARD HCO3 17.6 MEQ/L (22.0-26.0); ABG TOTAL CO2 18.5 MEQ/L (22.0-29.0); ABG pH (ARTERIAL) 7.287 UNITS (7.350-7.450)
[2021-06-08] MEDS: CHLORHEXIDINE GLUCONATE 0.12 % 15ML UDC (PERIDEX ORAL RINSE) MT SCH ×2 (11:00→21:09)
[2021-06-08] MEDS ORDERED: LevoFLOXacin IV 750 MG in IV 1 EA IV SCH (11:00)
[2021-06-08] MEDS ORDERED: SODIUM CHLORIDE 0.9% INJ 10 ML SYR IV PRN ×2 (11:05→16:55)
[2021-06-08 11:20] LABS: ALBUMIN 1.9 GM/DL (3.2-5.2); BILIRUBIN,TOTAL 3.2 MG/DL (0.2-1.0); CALCIUM LEVEL 7.2 MG/DL (8.5-10.1); CK-MB VALUE MASS 49.8 NG/ML (<3.6); CREATININE FOR GFR 3.43 MG/DL (0.55-1.30); GLOMERULAR FILTRATION RATE 16.2 (>60); MB/CK RELATIVE INDEX 12.39 (< OR =4); POTASSIUM SERUM 4.3 MEQ/L (3.5-5.1); TOTAL PROTEIN 4.9 GM/DL (6.4-8.2)
[2021-06-08] MEDS ORDERED: ONDANSETRON 4MG/2ML VIAL IV PRN (11:40)
[2021-06-08 12:14] LABS: ABG BASE EXCESS -7.5 (-2.0-2.0); ABG HCO3 20.1 MEQ/L (22.0-26.0); ABG O2 SATURATION 76.8 % (95.0-99.0); ABG PARTIAL PRESSURE CO2 49.5 mmHg (35.0-45.0); ABG TOTAL CO2 21.6 MEQ/L (22.0-29.0)
[2021-06-08 12:19] LABS: ABG pH (ARTERIAL) 7.226 UNITS (7.350-7.450)
[2021-06-08 12:20] LABS: ABG PARTIAL PRESSURE O2 47.2 mmHg (75.0-100.0)
[2021-06-08] MEDS ORDERED: ADENOSINE 6MG/2ML INJECTION (J0153) As Ordered ONE (12:39)
[2021-06-08] MEDS ORDERED: LIDOCAINE 1% MDV 20ML VIAL As Ordered ONE (14:14)
[2021-06-08 14:58] LABS: CK-MB VALUE MASS 35.7 NG/ML (<3.6); MB/CK RELATIVE INDEX 11.37 (< OR =4)
[2021-06-08] MEDS: NYSTATIN 100,000 UNITS/GM TOPICAL PWD 15 GM TOP SCH ×2 (15:43→21:41)
[2021-06-08] MEDS ORDERED: ADENOSINE 6MG/2ML INJECTION (J0153) IV STA (15:46)
[2021-06-08] MEDS ORDERED: SODIUM CHLORIDE 0.9% 1000ML IV ONE (15:50)
[2021-06-08 16:33] LABS: APPEARANCE, BODY FLUID CLOUDY (CLEAR); ASCITES FL COLOR YELLOW (COLORLESS); SOURCE, BODY FLUID ASCITES
[2021-06-08 16:54] LABS: SOURCE, BODY FLUID GLUCOSE ASCITES; SOURCE, BODY FLUID TOT PROTEIN ASCITES; TOTAL PROTEIN, BODY FLUID 4.1 G/DL (NOT ESTABLISHED)
[2021-06-08 16:59] LABS: ABG BASE EXCESS -7.5 (-2.0-2.0); ABG HCO3 17.4 MEQ/L (22.0-26.0); ABG O2 SATURATION 98.6 % (95.0-99.0); ABG PARTIAL PRESSURE CO2 32.8 mmHg (35.0-45.0); ABG PARTIAL PRESSURE O2 127.7 mmHg (75.0-100.0); ABG STANDARD HCO3 18.4 MEQ/L (22.0-26.0); ABG TOTAL CO2 18.4 MEQ/L (22.0-29.0); ABG pH (ARTERIAL) 7.342 UNITS (7.350-7.450)
[2021-06-08 17:07] LABS: SPEC. GRAVITY BODY FLUIDS 1.026 (NOT ESTABLISHED)
[2021-06-08] MEDS: DEXTROSE 50% 50 ML SYRINGE IV PRN ×3 (17:38→21:30)
[2021-06-08] MEDS: SODIUM CHLORIDE 0.9% INJ 10 ML SYR IV SCH (18:00)
[2021-06-08] MEDS ORDERED: VANCOMYCIN HCL 750 MG, VIAL MATE ADAPTER 1 EACH in NS 250 ML IV SCH (18:00)
[2021-06-08] MEDS ORDERED: D10W 1,000 ML IV SCH (18:50)
[2021-06-08] MEDS: dexameTHASONE 4 MG/ML 1ML VIAL (J1100 PER 1MG) IV SCH (21:09)
[2021-06-08] MEDS: dexmedeTOMidine 200 MCG in IV 1 EA IV SCH (21:41)
[2021-06-08 21:53] LABS: MAGNESIUM LEVEL 1.5 MG/DL (1.7-2.2)
[2021-06-08 21:56] LABS: HEMATOCRIT 33.2 % (36.0-47.0); MEAN CORPUSCULAR HEMOGLOBIN 20.8 pg (27.0-33.0); MEAN CORPUSCULAR HGB CONC 28.3 g/dl (32.0-36.5); MEAN CORPUSCULAR VOLUME 73.6 fl (80.0-96.0); RED BLOOD COUNT 4.51 10^6/uL (4.00-5.40); WHITE BLOOD COUNT 22.1 10^3/uL (4.0-10.0)
[2021-06-08 21:57] LABS: PLATELET COUNT, AUTOMATED 39 10^3/uL (150-450)
[2021-06-08 22:11] LABS: HEMOGLOBIN 9.4 g/dl (12.0-15.5)
[2021-06-08 22:15] LABS: CALCIUM LEVEL 6.8 MG/DL (8.5-10.1); CREATININE FOR GFR 3.06 MG/DL (0.55-1.30); GLOMERULAR FILTRATION RATE 18.5 (>60); PHOSPHORUS LEVEL 3.6 MG/DL (2.5-4.9); POTASSIUM SERUM 4.3 MEQ/L (3.5-5.1)
[2021-06-08] MEDS: MAG SULF 1GM/100ML (MAG RUN) 1 GM in IV 1 EA IV SCH (23:52)
[2021-06-08] MEDS: CALCIUM GLUCONATE 1,000 MG, VIAL MATE ADAPTER 1 EACH in NS 100 ML IV SCH (23:53)
[2021-06-09] VITALS (94 sets, daily range): BP systolic 69–135; BP diastolic 43–90
[2021-06-09] MEDS: NOREPINEPHRINE BITARTRATE 8 MG in D5W 492 ML IV SCH ×4 (00:51→17:10)
[2021-06-09] MEDS: CALCIUM GLUCONATE 1,000 MG, VIAL MATE ADAPTER 1 EACH in NS 100 ML IV SCH ×3 (01:06→06:15)
[2021-06-09] MEDS ORDERED: D10W 1,000 ML IV SCH (01:30)
[2021-06-09] MEDS: MAG SULF 1GM/100ML (MAG RUN) 1 GM in IV 1 EA IV SCH (02:36)
[2021-06-09 03:13] LABS: HEMATOCRIT 33.6 % (36.0-47.0); HEMOGLOBIN 9.4 g/dl (12.0-15.5); MEAN CORPUSCULAR HEMOGLOBIN 20.5 pg (27.0-33.0); MEAN CORPUSCULAR VOLUME 73.4 fl (80.0-96.0); RED BLOOD COUNT 4.58 10^6/uL (4.00-5.40); WHITE BLOOD COUNT 29.2 10^3/uL (4.0-10.0)
[2021-06-09 03:22] LABS: INR 1.73; PLATELET COUNT, AUTOMATED 33 10^3/uL (150-450); PROTHROMBIN TIME 20.7 SECONDS (12.7-14.5)
[2021-06-09 03:24] LABS: PARTIAL THROMBOPLASTIN TIME 46.4 SECONDS (25.9-37.0)
[2021-06-09 03:47] LABS: CALCIUM LEVEL 6.9 MG/DL (8.5-10.1); CREATININE FOR GFR 2.86 MG/DL (0.55-1.30); PHOSPHORUS LEVEL 3.4 MG/DL (2.5-4.9); POTASSIUM SERUM 4.3 MEQ/L (3.5-5.1)
[2021-06-09] MEDS: REMDESIVIR 100 MG in NS 250 ML IV SCH (04:03)
[2021-06-09] MEDS: dexmedeTOMidine 200 MCG in IV 1 EA IV SCH ×6 (05:27→20:26)
[2021-06-09] MEDS: SODIUM CHLORIDE 0.9% INJ 10 ML SYR IV SCH ×3 (05:27→17:59)
[2021-06-09 06:22] LABS: ABG BASE EXCESS -6.6 (-2.0-2.0); ABG HCO3 17.8 MEQ/L (22.0-26.0); ABG O2 SATURATION 93.7 % (95.0-99.0); ABG PARTIAL PRESSURE CO2 31.9 mmHg (35.0-45.0); ABG PARTIAL PRESSURE O2 70.4 mmHg (75.0-100.0); ABG TOTAL CO2 18.8 MEQ/L (22.0-29.0); ABG pH (ARTERIAL) 7.365 UNITS (7.350-7.450)
[2021-06-09 06:25] LABS: SOURCE, BODY FLUID ALBUMIN ASCITES
[2021-06-09] MEDS: CHLORHEXIDINE GLUCONATE 0.12 % 15ML UDC (PERIDEX ORAL RINSE) MT SCH ×2 (08:38→21:28)
[2021-06-09] MEDS: CEFEPIME HCL 1 GM in D5W MINI-BAG PLUS 50 ML IV SCH ×2 (08:38→21:26)
[2021-06-09] MEDS: NYSTATIN 100,000 UNITS/GM TOPICAL PWD 15 GM TOP SCH ×2 (08:39→21:28)
[2021-06-09] MEDS: PANTOPRAZOLE 40MG VIAL (C9113 PER 1) IV SCH (08:39)
[2021-06-09] MEDS ORDERED: HYDROMORPHONE HCL 0.5 MG/ 0.5 ML SYRINGE (J1170 PER 1) IV PRN (09:20)
[2021-06-09] MEDS: HYDROmorphone HCL 2MG/ML 1ML VIAL IV PRN ×2 (09:25→15:47)
[2021-06-09 09:34] LABS: HEMATOCRIT 34.8 % (36.0-47.0); HEMOGLOBIN 9.9 g/dl (12.0-15.5); MEAN CORPUSCULAR HEMOGLOBIN 20.8 pg (27.0-33.0); MEAN CORPUSCULAR HGB CONC 28.4 g/dl (32.0-36.5); MEAN CORPUSCULAR VOLUME 73.1 fl (80.0-96.0); RED BLOOD COUNT 4.76 10^6/uL (4.00-5.40)
[2021-06-09 09:37] LABS: PLATELET COUNT, AUTOMATED 32 10^3/uL (150-450)
[2021-06-09 09:38] LABS: WHITE BLOOD COUNT 32.8 10^3/uL (4.0-10.0)
[2021-06-09 09:44] LABS: INR 1.67; PROTHROMBIN TIME 20.1 SECONDS (12.7-14.5)
[2021-06-09] MEDS ORDERED: HYDROmorphone HCL 2MG/ML 1ML VIAL As Ordered ONE (09:44)
[2021-06-09 09:45] LABS: PARTIAL THROMBOPLASTIN TIME 50.2 SECONDS (25.9-37.0)
[2021-06-09 10:00] LABS: CALCIUM LEVEL 7.5 MG/DL (8.5-10.1); CREATININE FOR GFR 2.54 MG/DL (0.55-1.30); GLOMERULAR FILTRATION RATE 22.9 (>60); POTASSIUM SERUM 4.3 MEQ/L (3.5-5.1); VANCOMYCIN LEVEL TROUGH 10.3 UG/ML (10.0-20.0)
[2021-06-09] MEDS ORDERED: VANCOMYCIN HCL 750 MG, VIAL MATE ADAPTER 1 EACH in NS 250 ML IV SCH (10:00)
[2021-06-09] MEDS ORDERED: fentaNYL 100 MCG/2 ML INJECTION As Ordered ONE (10:42)
[2021-06-09] MEDS: fentaNYL 100 MCG/2 ML INJECTION IV PRN ×3 (11:00→18:53)
[2021-06-09] MEDS ORDERED: D10W IV SCH (12:00)
[2021-06-09] MEDS ORDERED: [UNRECOGNIZED DRUG - OTHER] IV SCH (12:00)
[2021-06-09] MEDS: D10W IV SCH ×2 (12:11→17:09)
[2021-06-09] MEDS: [UNRECOGNIZED DRUG - OTHER] IV SCH ×2 (12:11→17:09)
[2021-06-09] MEDS: FENTANYL CITRATE IV SCH (12:13)
[2021-06-09] MEDS: NS IV SCH (12:13)
[2021-06-09] MEDS: CALCIUM GLUCONATE 1,000 MG in NS 100 ML IV SCH ×4 (12:35→19:59)
[2021-06-09] MEDS: DEXTROSE 50% 50 ML SYRINGE IV PRN (13:19)
[2021-06-09] MEDS: metroNIDAZOLE 500 MG in IV 1 EA IV SCH ×2 (13:19→22:12)
[2021-06-09 17:11] LABS: HEMATOCRIT 35.5 % (36.0-47.0); HEMOGLOBIN 10.1 g/dl (12.0-15.5); MEAN CORPUSCULAR HEMOGLOBIN 20.8 pg (27.0-33.0); MEAN CORPUSCULAR HGB CONC 28.5 g/dl (32.0-36.5); MEAN CORPUSCULAR VOLUME 73.2 fl (80.0-96.0); RED BLOOD COUNT 4.85 10^6/uL (4.00-5.40)
[2021-06-09 17:13] LABS: PLATELET COUNT, AUTOMATED 24 10^3/uL (150-450); WHITE BLOOD COUNT 38.5 10^3/uL (4.0-10.0)
[2021-06-09 17:16] LABS: MAGNESIUM LEVEL 1.6 MG/DL (1.7-2.2)
[2021-06-09 17:16] LABS: MAGNESIUM LEVEL 2.1 MG/DL (1.7-2.2)
[2021-06-09] MEDS ORDERED: LORazepam 2 MG/ML VIAL IV STA (17:18)
[2021-06-09 17:30] LABS: CALCIUM LEVEL 7.4 MG/DL (8.5-10.1); CREATININE FOR GFR 2.13 MG/DL (0.55-1.30); GLOMERULAR FILTRATION RATE 28.1 (>60); PHOSPHORUS LEVEL 2.8 MG/DL (2.5-4.9); POTASSIUM SERUM 4.1 MEQ/L (3.5-5.1)
[2021-06-09 19:43] LABS: MAGNESIUM LEVEL 1.9 MG/DL (1.7-2.2)
[2021-06-09] MEDS ORDERED: VANCOMYCIN HCL 500 MG in D5W MINI-BAG PLUS 100 ML IV SCH (20:00)
[2021-06-09] MEDS ORDERED: fentaNYL 100 MCG/2 ML INJECTION IV ONE (21:20)
[2021-06-09] MEDS: dexameTHASONE 4 MG/ML 1ML VIAL (J1100 PER 1MG) IV SCH (21:25)
[2021-06-10] VITALS (95 sets, daily range): BP systolic 75–124; BP diastolic 50–90
[2021-06-10 00:37] LABS: HEMATOCRIT 37.7 % (36.0-47.0); HEMOGLOBIN 10.8 g/dl (12.0-15.5); MEAN CORPUSCULAR HEMOGLOBIN 20.8 pg (27.0-33.0); MEAN CORPUSCULAR HGB CONC 28.6 g/dl (32.0-36.5); MEAN CORPUSCULAR VOLUME 72.5 fl (80.0-96.0)
[2021-06-10 00:47] LABS: PLATELET COUNT, AUTOMATED 22 10^3/uL (150-450); WHITE BLOOD COUNT 49.8 10^3/uL (4.0-10.0)
[2021-06-10 00:55] LABS: CALCIUM LEVEL 7.2 MG/DL (8.5-10.1); CREATININE FOR GFR 1.86 MG/DL (0.55-1.30); GLOMERULAR FILTRATION RATE 32.8 (>60); PHOSPHORUS LEVEL 2.8 MG/DL (2.5-4.9); POTASSIUM SERUM 4.2 MEQ/L (3.5-5.1)
[2021-06-10 00:59] LABS: INR 1.49; PROTHROMBIN TIME 18.4 SECONDS (12.7-14.5)
[2021-06-10 01:00] LABS: PARTIAL THROMBOPLASTIN TIME 53.4 SECONDS (25.9-37.0)
[2021-06-10] MEDS: dexmedeTOMidine 200 MCG in IV 1 EA IV SCH ×4 (01:32→10:25)
[2021-06-10] MEDS: NOREPINEPHRINE BITARTRATE 8 MG in D5W 492 ML IV SCH ×3 (01:32→17:39)
[2021-06-10] MEDS: NS IV SCH ×2 (02:22→14:22)
[2021-06-10] MEDS: FENTANYL CITRATE IV SCH ×2 (02:22→14:22)
[2021-06-10] MEDS: D10W IV SCH ×3 (02:23→14:28)
[2021-06-10] MEDS: [UNRECOGNIZED DRUG - OTHER] IV SCH ×2 (02:23→07:38)
[2021-06-10] MEDS: REMDESIVIR 100 MG in NS 250 ML IV SCH (04:10)
[2021-06-10] MEDS: SODIUM CHLORIDE 0.9% INJ 10 ML SYR IV SCH ×3 (05:21→18:00)
[2021-06-10 05:54] LABS: ABG BASE EXCESS -7.4 (-2.0-2.0); ABG HCO3 19.6 MEQ/L (22.0-26.0); ABG O2 SATURATION 95.1 % (95.0-99.0); ABG PARTIAL PRESSURE CO2 45.9 mmHg (35.0-45.0); ABG PARTIAL PRESSURE O2 81.1 mmHg (75.0-100.0); ABG STANDARD HCO3 18.4 MEQ/L (22.0-26.0)
[2021-06-10 05:56] LABS: ABG pH (ARTERIAL) 7.249 UNITS (7.350-7.450)
[2021-06-10] MEDS: metroNIDAZOLE 500 MG in IV 1 EA IV SCH (06:10)
[2021-06-10 06:12] LABS: HEMATOCRIT 37.4 % (36.0-47.0); HEMOGLOBIN 10.4 g/dl (12.0-15.5); MEAN CORPUSCULAR HEMOGLOBIN 20.4 pg (27.0-33.0); MEAN CORPUSCULAR HGB CONC 27.8 g/dl (32.0-36.5); MEAN CORPUSCULAR VOLUME 73.3 fl (80.0-96.0)
[2021-06-10 06:13] LABS: CALCIUM LEVEL 7.2 MG/DL (8.5-10.1); CREATININE FOR GFR 1.75 MG/DL (0.55-1.30); GLOMERULAR FILTRATION RATE 35.2 (>60); PHOSPHORUS LEVEL 2.9 MG/DL (2.5-4.9); POTASSIUM SERUM 4.4 MEQ/L (3.5-5.1)
[2021-06-10 06:15] LABS: PLATELET COUNT, AUTOMATED 20 10^3/uL (150-450)
[2021-06-10 06:16] LABS: WHITE BLOOD COUNT 50.9 10^3/uL (4.0-10.0)
[2021-06-10 06:26] LABS: INR 1.48; PROTHROMBIN TIME 18.3 SECONDS (12.7-14.5)
[2021-06-10] MEDS ORDERED: VANCOMYCIN HCL 750 MG, VIAL MATE ADAPTER 1 EACH in NS 250 ML IV SCH (08:00)
[2021-06-10] MEDS: PANTOPRAZOLE 40MG VIAL (C9113 PER 1) IV SCH (09:19)
[2021-06-10] MEDS: CEFEPIME HCL 2 GM in D5W MINI-BAG PLUS 50 ML IV SCH ×2 (09:19→20:28)
[2021-06-10] MEDS: NYSTATIN 100,000 UNITS/GM TOPICAL PWD 15 GM TOP SCH ×2 (09:19→20:28)
[2021-06-10] MEDS: CALCIUM GLUCONATE 1,000 MG in D5W MINI-BAG PLUS 100 ML IV SCH ×2 (09:19→09:20)
[2021-06-10] MEDS: CHLORHEXIDINE GLUCONATE 0.12 % 15ML UDC (PERIDEX ORAL RINSE) MT SCH ×2 (09:20→20:28)
[2021-06-10 12:11] LABS: HEMATOCRIT 35.7 % (36.0-47.0); HEMOGLOBIN 10.1 g/dl (12.0-15.5); MEAN CORPUSCULAR HEMOGLOBIN 20.8 pg (27.0-33.0); MEAN CORPUSCULAR HGB CONC 28.3 g/dl (32.0-36.5); MEAN CORPUSCULAR VOLUME 73.5 fl (80.0-96.0); RED BLOOD COUNT 4.86 10^6/uL (4.00-5.40)
[2021-06-10 12:17] LABS: PLATELET COUNT, AUTOMATED 19 10^3/uL (150-450)
[2021-06-10 12:35] LABS: ALBUMIN 1.4 GM/DL (3.2-5.2); BILIRUBIN,DIRECT 3.5 MG/DL (0.0-0.2); BILIRUBIN,TOTAL 4.1 MG/DL (0.2-1.0); CALCIUM LEVEL 7.6 MG/DL (8.5-10.1); CREATININE FOR GFR 1.7 MG/DL (0.55-1.30); GLOMERULAR FILTRATION RATE 36.4 (>60); PHOSPHORUS LEVEL 2.8 MG/DL (2.5-4.9); POTASSIUM SERUM 4.4 MEQ/L (3.5-5.1); TOTAL PROTEIN 5.3 GM/DL (6.4-8.2)
[2021-06-10] MEDS: [UNRECOGNIZED DRUG - OTHER] IV SCH (14:28)
[2021-06-10] MEDS: ENOXAPARIN 60MG/0.6ML SYRINGE (J1650 PER 10MG) SC SCH (15:50)
[2021-06-10] MEDS ORDERED: CALCIUM GLUCONATE 1,000 MG in D5W MINI-BAG PLUS 100 ML IV ONE (16:00)
[2021-06-10 16:03] LABS: MAGNESIUM LEVEL 2.1 MG/DL (1.7-2.2)
[2021-06-10 17:56] LABS: HEMATOCRIT 35.1 % (36.0-47.0); MEAN CORPUSCULAR HEMOGLOBIN 20.7 pg (27.0-33.0); MEAN CORPUSCULAR HGB CONC 28.5 g/dl (32.0-36.5); MEAN CORPUSCULAR VOLUME 72.8 fl (80.0-96.0); RED BLOOD COUNT 4.82 10^6/uL (4.00-5.40)
[2021-06-10 17:57] LABS: PLATELET COUNT, AUTOMATED 22 10^3/uL (150-450)
[2021-06-10 18:05] LABS: INR 1.44
[2021-06-10 18:06] LABS: FIBRINOGEN 526 MG/DL (268-480); PARTIAL THROMBOPLASTIN TIME 45.2 SECONDS (25.9-37.0)
[2021-06-10 18:16] LABS: CALCIUM LEVEL 7.5 MG/DL (8.5-10.1); CREATININE FOR GFR 1.67 MG/DL (0.55-1.30); GLOMERULAR FILTRATION RATE 37.2 (>60); PHOSPHORUS LEVEL 2.4 MG/DL (2.5-4.9); POTASSIUM SERUM 4.5 MEQ/L (3.5-5.1)
[2021-06-10 18:44] LABS: D-DIMER QUANT > 4000 ng/ml (<500)
[2021-06-10] MEDS: dexameTHASONE 4 MG/ML 1ML VIAL (J1100 PER 1MG) IV SCH (20:28)
[2021-06-10] MEDS: fentaNYL 100 MCG/2 ML INJECTION IV PRN ×2 (20:38→23:50)
[2021-06-11] VITALS (69 sets, daily range): BP systolic 84–121; BP diastolic 50–77
[2021-06-11] MEDS: FENTANYL CITRATE IV SCH (02:04)
[2021-06-11] MEDS: NS IV SCH (02:04)
[2021-06-11] MEDS: ENOXAPARIN 60MG/0.6ML SYRINGE (J1650 PER 10MG) SC SCH ×2 (04:09→17:38)
[2021-06-11] MEDS: REMDESIVIR 100 MG in NS 250 ML IV SCH (04:10)
[2021-06-11] MEDS: fentaNYL 100 MCG/2 ML INJECTION IV PRN (04:15)
[2021-06-11] MEDS: SODIUM CHLORIDE 0.9% INJ 10 ML SYR IV SCH ×3 (05:00→18:00)
[2021-06-11 05:45] LABS: ABG HCO3 21.6 MEQ/L (22.0-26.0); ABG O2 SATURATION 90.8 % (95.0-99.0); ABG PARTIAL PRESSURE CO2 46.2 mmHg (35.0-45.0); ABG PARTIAL PRESSURE O2 64.7 mmHg (75.0-100.0); ABG STANDARD HCO3 20.3 MEQ/L (22.0-26.0); ABG pH (ARTERIAL) 7.287 UNITS (7.350-7.450)
[2021-06-11 06:22] LABS: ERYTHROCYTE SEDIMENTATION RATE 8 mm/hr (0-20)
[2021-06-11 06:27] LABS: CALCIUM LEVEL 7.1 MG/DL (8.5-10.1); CREATININE FOR GFR 2.09 MG/DL (0.55-1.30); GLOMERULAR FILTRATION RATE 28.7 (>60); PHOSPHORUS LEVEL 2.9 MG/DL (2.5-4.9); POTASSIUM SERUM 4.5 MEQ/L (3.5-5.1)
[2021-06-11 07:18] LABS: HEMATOCRIT 32.7 % (36.0-47.0); HEMOGLOBIN 9.3 g/dl (12.0-15.5); MEAN CORPUSCULAR HEMOGLOBIN 20.6 pg (27.0-33.0); MEAN CORPUSCULAR HGB CONC 28.4 g/dl (32.0-36.5); MEAN CORPUSCULAR VOLUME 72.3 fl (80.0-96.0); RED BLOOD COUNT 4.52 10^6/uL (4.00-5.40)
[2021-06-11 07:29] LABS: PLATELET COUNT, AUTOMATED 27 10^3/uL (150-450)
[2021-06-11 07:31] LABS: WHITE BLOOD COUNT 65.2 10^3/uL (4.0-10.0)
[2021-06-11] MEDS: CHLORHEXIDINE GLUCONATE 0.12 % 15ML UDC (PERIDEX ORAL RINSE) MT SCH ×2 (08:13→21:21)
[2021-06-11] MEDS: PANTOPRAZOLE 40MG VIAL (C9113 PER 1) IV SCH (08:14)
[2021-06-11] MEDS: CEFEPIME HCL 2 GM in D5W MINI-BAG PLUS 50 ML IV SCH ×2 (08:14→21:21)
[2021-06-11] MEDS: BISACODYL 10 MG SUPP PR PRN (08:14)
[2021-06-11] MEDS: NYSTATIN 100,000 UNITS/GM TOPICAL PWD 15 GM TOP SCH ×2 (08:15→21:21)
[2021-06-11] MEDS: D10W IV SCH (09:21)
[2021-06-11] MEDS: [UNRECOGNIZED DRUG - OTHER] IV SCH (09:21)
[2021-06-11] MEDS: dexmedeTOMidine 200 MCG in IV 1 EA IV SCH ×2 (12:59→22:16)
[2021-06-11] MEDS ORDERED: NS IV SCH ×2 (14:00→22:00)
[2021-06-11] MEDS ORDERED: MORPHINE SULFATE IV SCH ×2 (14:00→22:00)
[2021-06-11] MEDS: NOREPINEPHRINE BITARTRATE 8 MG in D5W 492 ML IV SCH ×2 (14:17→17:20)
[2021-06-11] MEDS: dexameTHASONE 4 MG/ML 1ML VIAL (J1100 PER 1MG) IV SCH (21:21)
[2021-06-12] VITALS (21 sets, daily range): BP systolic 95–144; BP diastolic 55–100
[2021-06-12] MEDS: REMDESIVIR 100 MG in NS 250 ML IV SCH (04:00)
[2021-06-12] MEDS: [UNRECOGNIZED DRUG - OTHER] IV SCH (04:00)
[2021-06-12] MEDS: ENOXAPARIN 60MG/0.6ML SYRINGE (J1650 PER 10MG) SC SCH (04:00)
[2021-06-12] MEDS: D10W IV SCH (04:00)
[2021-06-12] MEDS: SODIUM CHLORIDE 0.9% INJ 10 ML SYR IV SCH ×2 (05:28)
[2021-06-12 06:40] LABS: HEMATOCRIT 30.1 % (36.0-47.0); HEMOGLOBIN 8.6 g/dl (12.0-15.5); MEAN CORPUSCULAR HEMOGLOBIN 20.8 pg (27.0-33.0); MEAN CORPUSCULAR HGB CONC 28.6 g/dl (32.0-36.5); MEAN CORPUSCULAR VOLUME 72.7 fl (80.0-96.0); RED BLOOD COUNT 4.14 10^6/uL (4.00-5.40)
[2021-06-12] MEDS: NOREPINEPHRINE BITARTRATE 8 MG in D5W 492 ML IV SCH (06:40)
[2021-06-12 06:42] LABS: PLATELET COUNT, AUTOMATED 45 10^3/uL (150-450); WHITE BLOOD COUNT 62.6 10^3/uL (4.0-10.0)
[2021-06-12 06:59] LABS: CALCIUM LEVEL 7.4 MG/DL (8.5-10.1); CREATININE FOR GFR 2.63 MG/DL (0.55-1.30); POTASSIUM SERUM 4.6 MEQ/L (3.5-5.1)
[2021-06-12 07:24] LABS: ANISOCYTOSIS 4+; ATYPICAL LYMPH 1 % (0-5); LYMPHOCYTES 4 % (16-44); METAMYELOCYTES 2 % (0-0); MICROCYTOSIS 1+; MONOCYTES 4 % (0-5); NEUTROPHILS 84 % (28-66); PLATELET ESTIMATE MARKED DECREASE (NORMAL)
[2021-06-12 07:25] LABS: CRENATED RBC 1+; OVALOCYTES 1+
[2021-06-12 07:27] LABS: POIKILOCYTOSIS 1+
[2021-06-12] MEDS: dexmedeTOMidine 200 MCG in IV 1 EA IV SCH (07:33)
[2021-06-12 08:15] LABS: MAGNESIUM LEVEL 2.1 MG/DL (1.7-2.2)
[2021-06-12] MEDS: PANTOPRAZOLE 40MG VIAL (C9113 PER 1) IV SCH (09:56)
[2021-06-12] MEDS: CEFEPIME HCL 2 GM in D5W MINI-BAG PLUS 50 ML IV SCH (09:56)
[2021-06-12] MEDS: CHLORHEXIDINE GLUCONATE 0.12 % 15ML UDC (PERIDEX ORAL RINSE) MT SCH (09:56)
[2021-06-12] MEDS: NYSTATIN 100,000 UNITS/GM TOPICAL PWD 15 GM TOP SCH (09:57)
[2021-06-12] MEDS: BISACODYL 10 MG SUPP PR PRN (09:59)
[2021-06-12 12:22] LABS: ABG BASE EXCESS -3.6 (-2.0-2.0); ABG HCO3 22.3 MEQ/L (22.0-26.0); ABG PARTIAL PRESSURE CO2 43.9 mmHg (35.0-45.0); ABG PARTIAL PRESSURE O2 94.1 mmHg (75.0-100.0); ABG STANDARD HCO3 21.5 MEQ/L (22.0-26.0); ABG TOTAL CO2 23.7 MEQ/L (22.0-29.0); ABG pH (ARTERIAL) 7.324 UNITS (7.350-7.450)
[2021-06-12] MEDS ORDERED: HYOSCYAMINE SULFATE 0.125 MG SUBL TABLET PO PRN (14:00)
[2021-06-12] MEDS: LORazepam 2 MG/ML VIAL IV PRN ×2 (17:37→20:58)
[2021-06-12] MEDS ORDERED: SCOPOLAMINE 1MG TRANSDERMAL PATCH TOP SCH (21:00)
== END 2021-06-12 22:15 | disposition expired | DRG 720 ==
LOC: M ED 16:54 → M ED INP 22:43 → ENRESERV 06-08 00:36 → M ICU 06-08 00:53
PROVIDERS: ADMIT Family Medicine; ATTEND Internal Medicine Nephrology
PROC: 0W9G3ZZ Drainage of Peritoneal Cavity, Percutaneous Approach (ICD-10-PCS; 2021-06-08)
PROC: 02HV33Z Insertion of Infusion Device into Superior Vena Cava, Percutaneous Approach (ICD-10-PCS; principal; 2021-06-08 15:00)
DX: A41.9 Sepsis, unspecified organism (principal); I26.99 Other pulmonary embolism without acute cor pulmonale; U07.1 COVID-19; A48.3 Toxic shock syndrome; J96.01 Acute respiratory failure with hypoxia; G93.41 Metabolic encephalopathy; R18.8 Other ascites; J12.82 Pneumonia due to coronavirus disease 2019; R65.21 Severe sepsis with septic shock; K65.0 Generalized (acute) peritonitis; N17.9 Acute kidney failure, unspecified; D69.6 Thrombocytopenia, unspecified; K76.6 Portal hypertension; E66.01 Morbid (severe) obesity due to excess calories; L97.929 Non-pressure chronic ulcer of unspecified part of left lower leg with unspecified severity; L97.219 Non-pressure chronic ulcer of right calf with unspecified severity; E87.5 Hyperkalemia; E83.51 Hypocalcemia; K74.60 Unspecified cirrhosis of liver; I10 Essential (primary) hypertension; Z51.5 Encounter for palliative care; Z79.899 Other long term (current) drug therapy; Z88.0 Allergy status to penicillin; Z91.040 Latex allergy status; Z88.8 Allergy status to other drugs, medicaments and biological substances; I89.0 Lymphedema, not elsewhere classified; Z87.891 Personal history of nicotine dependence; R68.0 Hypothermia, not associated with low environmental temperature; Z66 Do not resuscitate